=== PATIENT | male | born 1960 | race African-American/Black ===

== ENCOUNTER 2021-11-07 02:57 | Emergency (ER) | payer OTHER ==
[~2021-11-07] VITALS: Ht 165.1 cm; Wt 54.5 kg
[2021-11-07 03:03] VITALS: BP 160/99
== END 2021-11-07 12:30 | disposition left against medical advice (07) ==
LOC: ER 02:57
DX: Z53.21 Procedure and treatment not carried out due to patient leaving prior to being seen by health care provider (principal)
CPT/HCPCS: 93005